=== PATIENT | female | born 1975 | race Caucasian/White ===

== ENCOUNTER 2023-01-14 10:43 | Emergency (ER) | payer SELFPAY ==
--- OUTSIDE RECORDS SUMMARY | 2023-01-14 10:47 | XMS REPORT | Continuity of Care Document ---
:1975 Author Organization [facility] Address [address] [facility] [address] [place] [id number] Care Team Providers Name Role Phone RODOLFO Attending Clinician Unavailable Srini Perdue Attending Clinician SRINI WOLFF Attending Clinician Unavailable Doctor Unassigned, [place] Attending Clinician Unavailable RODOLFO Admitting Clinician Unavailable Payers Payer Name Policy Type Policy Number Effective Date Expiration Date S ource Problems Condition Condition Condition Status Onset Resolution Last Treating Co mments Source Name Details Category Date Date Treatment Clinician Date ASCUS of ASCUS of Disease Active Overview: Un lucia cervix cervix 11-04 Patient ity of with with 00:00: will need [place] negative negative 00 follow up Med ical high risk high risk pap smear B ranch HPV HPV in 3 years (2023) Encounter Encounter Disease Active Uni vers for for 10-22 ity of surve[place] ce of 00 Medical contracept contracept Br anch fortino, fortino, unspecifie unspecifie d d contracept contracept ag ag History of History of Disease Active U jaqui hysterecto hysterecto 10-22 it y of my my 00:00: [place] 00 [facility] Branch Screening Screening Disease Active Uni vers examinatio examinatio 10-22 it y of n for STD n for STD 00:00: Hari quinn (sexually (sexually 00 Medi sofia transmitte transmitte Br anch d disease) d disease) Underweigh Underweigh Disease Active U nivers t t 10-22 ity of 00:00: [place] 00 Medical Branch Graves Graves Disease Active Univers disease disease 01-08 ity of 00:00: [place] [facility] Branch Elevated Elevated Disease Active Unive rs alkaline alkaline 01-08 ity of phosphatas phosphat[place] e level Medical Branch Anemia Anemia Disease Active Univers 01-08 ity of 00:00: [place] [facility] Smoking Smoking Disease Active Univers 01-08 ity of 00:00: [place] 00 Medical Branch Fever Fever Disease Active Univers 01-15 ity of 00:00: [place] 00 Medical Branch Lymphadeno Lymphadeno Disease Active U nivers eleuterio eleuterio 01-15 ity of 00:00: [place] 00 Medical Branch Dysphagia Dysphagia Disease Active Uni vers 01-15 ity of 00:00: [place] 00 Medical Branch Hyperthyro Hyperthyro Disease Active U lizers idism idism 01-14 ity of 00:00: [place] 00 Medical Branch Allergies, Adverse Reactions, Alerts Allergy Allergy Status Severity Reaction(s) Onset Inactive Treating Comm ents Source Name Type Date Date Clinician Aspirin Propensi Active [facility] Univers ty to 01-14 ity of adverse 00:00: [place] reaction 00 Medical s Branch ASPIRIN DRUG Active [facility] Univers INGREDI 01-14 ity of 00:00: [place] 00 [facility] Social History Social Habit Start Date Stop Date Quantity Comments Source History of tobacco Cigarette Smoker [facility] use [facility] Cigarettes smoked 2020-10-22 2020-10-22 Univers ity of current (pack per 00:00:00 00:00:00 ) - Reported Branch Cigarette 2020-10-22 2020-10-22 University of pack-years 00:00:00 00:00:00 [facility] Tobacco use and 2020-10-22 2020-10-22 Never used Universit y of exposure 00:00:00 00:00:00 [facility] Alcohol intake 2020-10-22 2020-10-22 Current University of 00:00:00 00:00:00 non-drinker of [facility] alcohol Branch (finding) Sex [birth year] Universit y of 00:00:00 00:00:00 [facility] Smoking Status Start Date Stop Date Source Current every day smoker 2020-10-22 00:00:00 Uni versity of [facility] Medications Ordered Filled Start Stop Current Ordering Indication Dosage Frequency Signature Comments Components Source Medication Medication Date Date Medication? Clinician (SIG) Name Name levothyroxi Yes 50ug Take 1 Tab Univers ne 6-16 by mouth ity of (SYNTHROID) 00:00: every [place] 50 mcg 00 morning. Medical tablet Branch levothyroxi 2020- No 50ug Take 1 Tab Univers ne 6-16 03-17 by mouth ity of (SYNTHROID) 00:00[place] 50 [place]cg 00 :00 morning. Medical tablet Branch levothyroxi 2020- No 50ug Take 1 Tab Univers ne 6-16 03-17 by mouth ity of (SYNTHROID) 00:00[place] 00[place] 50 mcg 00 :00 morning. Medical tablet Branch methimazole Yes 20mg Take 2 Univ ers (TAPAZOLE) 5-14 Tabs by ity of 10 mg 00:00: mouth [place] tablet 00 daily. Medical Branch methimazole 2020- No 20mg Take 2 Uni vers (TAPAZOLE) 5-14 03-17 Tabs by ity o f 10 mg 00:00: 00:00 mouth [place] tablet 00 :00 daily. Medical Branch methimazole 2020- No 20mg Take 2 Uni vers (TAPAZOLE) 5-14 03-17 Tabs by ity o f 10 mg 00:00: 00:00 mouth [place] tablet 00 :00 daily. Medical Branch metoprolol 2012-08 Yes 25mg Take 1 Tab U nivers tartrate 1-18 by mouth 2 ity o f (LOPRESSOR) 00:00: (two) [place] 25 mg 00 times Medical tablet daily. Branch metoprolol 2012-08- No 25mg Take 1 Tab Univers tartrate 1-18 03-17 by mouth 2 ity of (LOPRESSOR) 00:00: 00:00 (two[place] 25 mg 00 :00 times Medical tablet daily. Branch metoprolol 2012-08- No 25mg Take 1 Tab Univers tartrate 1-18 03-17 by mouth 2 ity of (LOPRESSOR) 00:00: 00:00 (two[place] 25 mg 00 :00 times Medical tablet daily. Branch No known No Univers medications ity [facility] No known No Univers medications ity [facility] No known No Univers medications ity [facility] No known No Univers medications [facility] No known No Univers medications [facility] Vital Signs Vital Name Observation Time Observation Value Comments Source Systolic blood 2020-10-22 18:45:00 112 mm[Hg] Univer sity of pressure [facility] Diastolic blood 2020-10-22 18:45:00 74 mm[Hg] Unive rsity [facility] Heart rate 2020-10-22 18:45:00 69 /min [facility] Body temperature 2020-10-22 18:45:00 36.72 [place] Respiratory rate 2020-10-22 18:45:00 18 /min [facility] Body height 2020-10-22 18:45:00 177.8 cm [facility] Body weight 2020-10-22 18:45:00 45.178 kg [facility] BMI 2020-10-22 18:45:00 14.29 kg/m2 [facility] Procedures Procedure Date / Time Performed Performing Clinician [facility] e ASSIGNMENT OF BENEFITS 2020-10-22 17:59:12 Doctor Unassigned, No [facility] Encounters Start End Encounter Admission Attending Care Care Encounter Source Date/Time Date/Time Type Type Clinicians Facility Department ID 2022-02-17 2022-02-17 Outpatient ABDOUL OREILLY [id number] 03:14:00 03:14:00 HN [id number] da [facility] 2020-11-05 2020-11-[address] [facility] [id number] Univers 00:00:00 00:00:00 Srini Mario [employer] [id number] ity of REGIONAL [id number] Art as MATERNAL [phone] [facility] ical & CHILD [address] [place] [address] 2020-11-04 2020-11-[address] [facility] [id number] Univers 00:00:00 00:00:00 Srini R [employer]SE[employer] RE[employer]IGER[employer] MECH[employer]IC [id number] ity of REGIONAL [id number] Art as MATERNAL [phone] [facility] & CHILD [address] [place] [address] 2020-10-23 2020-10-[address] [facility] [id number] Univers 00:00:00 00:00:00 Cherryvioleta R HOUSEHOLD REFRIGERATION MECHANIC [id number] ity of [facility] [id number] Art as MATERNAL [phone] [address] 2020-10-22 2020-10-22 [facility] [id number] Univers 13:19:03 14:16:15 Visit [facility] Fabiano [employer]SE[employer]OLD REFRIGERATION MECH[employer]IC [id number] ity of [facility] [id number] Art as MATERNAL [phone] [address] 2020-10-22 2020-10-22 [facility] [id number] Univers 13:30:00 13:30:00 [facility] 2020-10-22 2020-10-22 Outpatient Fab[facility] [id number] Univers 13:00:00 13:00:00 [facility] 2020-10-22 2020-10-22 Outpatient Fab[facility] [id number] Univers 13:00:00 13:00:00 [facility] 2020-10-22 2020-10-22 Orders Doctor JASMIN [id number] Univers 00:00:00 00:00:00 Only Unassigned, PIA [id number] ity of [place] [facility] [id number] Rat as [phone] [place] [address] Branch Results This patient has no known results.
[2023-01-14] MEDS ORDERED: HYDROCODONE/APAP 10/325 TAB ONE (11:15)
[2023-01-14] MEDS ORDERED: KETOROLAC 30 MG/ML INJ ONE (11:16)
[2023-01-14] MEDS ORDERED: ONDANSETRON 4 MG (ODT) TAB ONE (11:42)
--- NOTE | 2023-01-14 12:58 | RAD REPORT ---
EXAM DESCRIPTION: RAD - Ankle Right 3 View - 01/14/2023 12:35 pm CLINICAL HISTORY: Right ankle pain FINDINGS: No fracture or dislocation is seen.
--- NOTE | 2023-01-14 12:58 | RAD REPORT ---
EXAM DESCRIPTION: RAD - Tib Fib Right - 01/14/2023 12:35 pm CLINICAL HISTORY: Right leg pain FINDINGS: No fracture is seen
--- NOTE | 2023-01-14 13:00 | RAD REPORT ---
EXAM DESCRIPTION: RAD - Foot Right 3 View - 01/14/2023 12:35 pm CLINICAL HISTORY: Right foot pain status post injury FINDINGS: No fracture or dislocation is seen Bones are osteoporotic
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
[2023-01-14 14:40] VITALS: BP 127/78; TEMP 98.1; O2SAT 100
== END 2023-01-14 14:35 | disposition home or self-care (01) ==
LOC: ER 10:43
DX: S93.401A Sprain of unspecified ligament of right ankle, initial encounter (principal)
CPT/HCPCS: 96372; 99284; Q0162